=== PATIENT | female | born 1990 | race Caucasian/White ===

== ENCOUNTER 2022-12-14 17:09 | Emergency (ER) | payer OTHER ==
[2022-12-14 17:30] VITALS: TEMP 98.4
--- NOTE | 2022-12-14 19:11 | ED ---
Fall HPI - General Chief Complaint: Fall Stated Complaint: 17 weeks fell down 5 steps Time Seen by Provider: 12/14/22 18:25 Source: patient Mode of arrival: ambulatory - History of Present Illness Initial Comments: 32-year-old female presenting to the ED with a chief complaint of fall. Patient is A3. Patient reports that she was carrying groceries up the stairs when her left foot got caught on the stair causing her to fall backwards down half the stairway. Patient reports that she did not hit her head at this time. Does report that she fell onto the left side of her back and now notes left shoulder pain and left knee pain. Patient is currently 17 weeks and also notes that she is concerned about her baby due to fall. Patient does note some ab dominal pain after a fall however denies vaginal bleeding. No chest pain, shortness of breath, lightheadedness, dizziness prior to the fall. No other complaints. - Related Data Allergies Allergy/AdvReac Type Severity Reaction Status Date / Time amoxicillin Allergy Rash/Hives Verified 12/14/22 17:16 codeine Allergy Rash/Hives Verified 12/14/22 17:16 morphine Allergy Vomiting Verified 12/14/22 17:16 Review of Systems ROS Statement: Those systems with pertinent positive or pertinent negative responses have been documented in the HPI. ROS Other: All systems not noted in ROS Statement are negative. Past Medical History Past Medical History: Hypertension Additional Past Medical History / Comment(s): Pre eclampsia History of Any Multi-Drug Resistant Organisms: None Reported Past Surgical History: Section Past Psychological History: No Psychological Hx Reported Smoking Status: Never smoker Past Alcohol Use History: None Reported Past Drug Use History: None Reported General Exam Limitations: no limitations General appearance: alert, in no apparent distress Head exam: Present: atraumatic, normocephalic, other (No wiggins signs or raccoons eyes.) Eye exam: Present: normal appearance, PERRL, EOMI Respiratory exam: Present: normal lung sounds bilaterally Cardiovascular Exam: Present: regular rate, normal rhythm GI/Abdominal exam: Present: other (Gravid. No significant tenderness to palpation.) Neurological exam: Present: alert, oriented X3 Skin exam: Present: warm, dry Course Vital Signs 12/14/22 12/14/22 17:13 21:42 Temperature 98.4 F Pulse Rate 100 94 Respiratory 20 18 Rate Blood Pressure 159/106 131/94 O2 Sat by Pulse 97 98 Oximetry Medical Decision Making - Medical Decision Making Was pt. sent in by a medical professional or institution (, PA, BOTTOMER OPERATOR, urgent care, hospital, or group home...) When possible be specific @ -No Did you speak to anyone other than the patient for history (EMS, parent, family, police, friend...)? What history was obtained from this source @ -No Did you review nursing and triage notes (agree or disagree)? Why? @ -I reviewed and agree with nursing and triage notes Were old charts reviewed (outside hosp., previous admission, EMS record, old EKG, old radiological studies, urgent care reports/EKG's, group home records)? Report findings @ -No old charts were reviewed Differential Diagnosis (chest pain, altered mental status, abdominal pain women, abdominal pain men, vaginal bleeding, weakness, fever, dyspnea, syncope, headache, dizziness, GI bleed, back pain, seizure, CVA, palpatations, mental health, musculoskeletal)? @ -Differential Abdominal Pain Women: Appendicitis, Cholecystitis, diverticulosis, ischemic bowel, pancreatitis, hepatitis, UTI, gastroenteritis, AAA, incarcerated hernia, bowel obstruction, constipation, inflammatory bowel, hepatitis, peptic ulcer disease, splenic infarction, perforated viscus, vulvitis, ovarian torsion, PID, kidney stone, placenta abruption, this is not meant to be an all-inclusive list EKG interpreted by me (3pts min.). @ -As above X-rays interpreted by me (1pt min.). @ -None done CT interpreted by me (1pt min.). @ -None done U/S interpreted by me (1pt. min.). @ -None done What testing was considered but not performed or refused? (CT, X-rays, U/S, labs)? Why? @ -X-ray of the shoulder, hip, knee were considered however patient did have full active range of motion of bilateral upper and lower extremities and had no crepitus, or obvious bony deformity on exam. In context of x-ray was discussed as an option with the patient however patient notes that she would like to have x-rays performed at this time. What meds were considered but not given or refused? Why? @ -None Did you discuss the management of the patient with other professionals (professionals i.e. , PA, BOTTOMER OPERATOR, lab, RT, psych nurse, social sciences chair, fleece tier, teacher, risk control officer, bilingual patient support caseworker)? Give summary @ -No Was smoking cessation discussed for >3mins.? @ -No Was critical care preformed (if so, how long)? @ -No Were there social determinants of health that impacted care today? How? (Homelessness, low income, unemployed, alcoholism, drug addiction, trans portation, low edu. Level, literacy, decrease access to med. care, senior care, rehab)? @ -No Was there de-escalation of care discussed even if they declined (Discuss DNR or withdrawal of care, Hospice)? DNR status @ -No What co-morbidities impacted this encounter? (DM, HTN, Smoking, COPD, CAD, Cancer, CVA, ARF, Chemo, Hep., AIDS, mental health diagnosis, sleep apnea, morbid obesity)? @ - Was patient admitted / discharged? Hospital course, mention meds given and route, prescriptions, significant lab abnormalities, going to OR and other pertinent info. @ -Discharge 32-year-old female presenting to the ED with a chief complaint of fall. Patient states that she was going up the stairs carrying groceries when she actually stubbed her left foot on the stairs causing her to lose her balance and fall backwards. Patient denies head injury at this time. Patient states that she primarily landed on her buttocks and left shoulder and now notes pain of these regions. X-ray was offered however patient did decline. Transvaginal ultrasound did show single live intrauterine with no evidence of placental abruption. Patient Rh+. Patient discharged home in stable condition. Discussed return precautions patient verbalizes agreement. Undiagnosed new problem with uncertain prognosis? @ -No Drug Therapy requiring intensive monitoring for toxicity (Heparin, Nitro, Insulin, Cardizem)? @ -No Were any procedures done? @ -No Diagnosis/symptom? @ -s/p mechanical fall Acute, or Chronic, or Acute on Chronic? @ -Acute Uncomplicated (without systemic symptoms) or Complicated (systemic symptoms)? @ -Uncomplicated Side effects of treatment? @ -No Exacerbation, Progression, or Severe Exacerbation? @ -No Poses a threat to life or bodily function? How? (Chest pain, [place], [place], pneumonia, PE, COPD, DKA, ARF, appy, cholecystitis, CVA, Diverticulitis, Homicidal, Suicidal, threat to staff... and all critical care pts) @ -No - Lab Data Result diagrams: 12/14/22 20:03 12/14/22 20:03 Lab Results 12/14/22 12/14/22 12/14/22 Range/Units 20:03 20:03 20:03 WBC 11.3 H (3.8-10.6) k/uL RBC 4.11 (3.80-5.40) m/uL Hgb 12.5 (11.4-16.0) gm/dL Hct 34.7 (34.0-46.0) % MCV 84.4 (80.0-100.0) fL MCH 30.4 (25.0-35.0) pg MCHC 36.0 (31.0-37.0) g/dL RDW 13.6 (11.5-15.5) % Plt Count 208 (150-450) k/uL MPV 9.7 Neutrophils % 74 % Lymphocytes % 19 % Monocytes % 5 % Eosinophils % 2 % Basophils % 0 % Neutrophils # 8.3 H (1.3-7.7) k/uL Lymphocytes # 2.1 (1.0-4.8) k/uL Monocytes # 0.5 (0-1.0) k/uL Eosinophils # 0.2 (0-0.7) k/uL Basophils # 0.0 (0-0.2) k/uL Sodium 135 L (137-145) mmol/L Potassium 4.4 (3.5-5.1) mmol/L Chloride 109 H (98-107) mmol/L Carbon Dioxide 15 L (22-30) mmol/L Anion Gap 11 mmol/L BUN 8 (7-17) mg/dL Creatinine 0.43 L (0.52-1.04) mg/dL Est GFR (CKD-EPI)AfAm >90 (>60 ml/min/1.73 sqM) Est GFR (CKD-EPI)NonAf >90 (>60 ml/min/1.73 sqM) Glucose 89 (74-99) mg/dL Calcium 9.2 (8.4-10.2) mg/dL Magnesium 1.8 (1.6-2.3) mg/dL Total Bilirubin 0.5 (0.2-1.3) mg/dL AST 31 (14-36) U/L ALT 16 (4-34) U/L Alkaline Phosphatase 72 (38-126) U/L Total Protein 6.6 (6.3-8.2) g/dL Albumin 3.6 (3.5-5.0) g/dL Urine Color Yellow Urine Appearance Cloudy H (Clear) Urine pH 6.0 (5.0-8.0) Ur Specific [place] 1.024 (1.001-1.035) Urine Protein Trace H (Negative) Urine Glucose (UA) Negative (Negative) Urine Ketones 1+ H (Negative) Urine Blood Negative (Negative) Urine Nitrite Negative (Negative) Urine Bilirubin Negative (Negative) Urine Urobilinogen <2.0 (<2.0) mg/dL Ur Leukocyte Esterase Large H (Negative) Urine RBC 5 (0-5) /hpf Urine WBC 8 H (0-5) /hpf Ur Squamous Epith Cells 25 H (0-4) /hpf Urine Bacteria Rare H (None) /hpf Urine Mucus Many H (None) /hpf Blood Type Blood Type Recheck Bld Type Recheck Status 12/14/22 Range/Units 21:44 WBC (3.8-10.6) k/uL RBC (3.80-5.40) m/uL Hgb (11.4-16.0) gm/dL Hct (34.0-46.0) % MCV (80.0-100.0) fL MCH (25.0-35.0) pg MCHC (31.0-37.0) g/dL RDW (11.5-15.5) % Plt Count (150-450) k/uL MPV Neutrophils % % Lymphocytes % % Monocytes % % Eosinophils % % Basophils % % Neutrophils # (1.3-7.7) k/uL Lymphocytes # (1.0-4.8) k/uL Monocytes # (0-1.0) k/uL Eosinophils # (0-0.7) k/uL Basophils # (0-0.2) k/uL Sodium (137-145) mmol/L Potassium (3.5-5.1) mmol/L Chloride (98-107) mmol/L Carbon Dioxide (22-30) mmol/L Anion Gap mmol/L BUN (7-17) mg/dL Creatinine (0.52-1.04) mg/dL Est GFR (CKD-EPI)AfAm (>60 ml/min/1.73 sqM) Est GFR (CKD-EPI)NonAf (>60 ml/min/1.73 sqM) Glucose (74-99) mg/dL Calcium (8.4-10.2) mg/dL Magnesium (1.6-2.3) mg/dL Total Bilirubin (0.2-1.3) mg/dL AST (14-36) U/L ALT (4-34) U/L Alkaline Phosphatase (38-126) U/L Total Protein (6.3-8.2) g/dL Albumin (3.5-5.0) g/dL Urine Color Urine Appearance (Clear) Urine pH (5.0-8.0) Ur Specific [place] (1.001-1.035) Urine Protein (Negative) Urine Glucose (UA) (Negative) Urine Ketones (Negative) Urine Blood (Negative) Urine Nitrite (Negative) Urine Bilirubin (Negative) Urine Urobilinogen (<2.0) mg/dL Ur Leukocyte Esterase (Negative) Urine RBC (0-5) /hpf Urine WBC (0-5) /hpf Ur Squamous Epith Cells (0-4) /hpf Urine Bacteria (None) /hpf Urine Mucus (None) /hpf Blood Type O Positive Blood Type Recheck No Previous Record Bld Type Recheck Status [facility] ONLY Disposition Clinical Impression: Fall Disposition: HOME SELF-CARE Condition: Good Additional Instructions: Please return to the Emergency Department if symptoms worsen or any other concerns. Is patient prescribed a controlled substance at d/c from ED?: No Referrals: Lindsey Cedeño MD [Primary Care Provider] - 1-2 days Time of Disposition: 22:55
[2022-12-14 20:14] LABS: Basophils % (A) 0 %; Eosinophils # (A) 0.2 k/uL (0-0.7); Eosinophils % (A) 2 %; HCT 34.7 % (34.0-46.0); HGB 12.5 gm/dL (11.4-16.0); Lymphocytes # (A) 2.1 k/uL (1.0-4.8); Lymphocytes % (A) 19 %; MCH 30.4 pg (25.0-35.0); MCV 84.4 fL (80.0-100.0); Mean Platelet Volume 9.7; Monocytes # (A) 0.5 k/uL (0-1.0); Monocytes % (A) 5 %; Neutrophils # (A) 8.3 k/uL (1.3-7.7); Neutrophils % (A) 74 %; Platelet Count 208 k/uL (150-450); RBC 4.11 m/uL (3.80-5.40); RDW 13.6 % (11.5-15.5); WBC 11.3 k/uL (3.8-10.6)
[2022-12-14 20:34] LABS: Appearance,Urine Cloudy (Clear); Bacteria,Urine Rare /hpf; Bilirubin,Urine Negative (Negative); Blood,Urine Negative (Negative); Color,Urine Yellow; Glucose,Urine (UA) Negative (Negative); Ketones,Urine 1+ (Negative); Leukocyte Esterase,Urine Large (Negative); Mucus,Urine Many /hpf; Nitrite,Urine Negative (Negative); Protein,Urine Trace (Negative); RBC,Urine 5 /hpf (0-5); Specific Gravity,Urine 1.024 (1.001-1.035); Squamous Epithelial Cell,Urine 25 /hpf (0-4); Urobilinogen,Urine <2.0 mg/dL (<2.0); WBC,Urine 8 /hpf (0-5)
[2022-12-14 20:35] LABS: ALT 16 U/L (4-34); African American GFR (CKD) >90 (>60 ml/min/1.73 sqM); Anion Gap 11 mmol/L; Blood Urea Nitrogen 8 mg/dL (7-17); Calcium 9.2 mg/dL (8.4-10.2); Carbon Dioxide 15 mmol/L (22-30); Chloride 109 mmol/L (98-107); Glucose 89 mg/dL (74-99); Non-African American GFR(CKD) >90 (>60 ml/min/1.73 sqM); Sodium 135 mmol/L (137-145); Total Bilirubin 0.5 mg/dL (0.2-1.3)
[2022-12-14 20:41] LABS: AST 31 U/L (14-36); Albumin 3.6 g/dL (3.5-5.0); Alkaline Phosphatase 72 U/L (38-126); Magnesium 1.8 mg/dL (1.6-2.3); Potassium 4.4 mmol/L (3.5-5.1); Total Protein 6.6 g/dL (6.3-8.2)
--- NOTE | 2022-12-14 20:48 | US ---
EXAMINATION TYPE: US OB limited DATE OF EXAM: 12/14/2022 COMPARISON: NONE CLINICAL INDICATION: Female, 32 years old with history of 17 weeks s/p fall; pain near umbil icus after fall on patient's left side, no bleeding EXAM PERFORMED: BENJAMÍN GESTATIONAL AGE / DATING Physician Established: (17 weeks/0 days) EDC: 05/24/2023 No growth performed on today?s study per ordering physician SURVEY PLACENTA: Posterior - No signs of abruption PREVIA: Marginal PRESENTATION: Vertex LIE: Longitudinal HEART RATE: 176 bpm RHYTHM: Normal IMPRESSION: Single live intrauterine gestation. No evidence of placenta abruption.
[2022-12-14 21:50] VITALS: BP 131/94; PULSE 94; RESP 18
== END 2022-12-14 23:36 | disposition home or self-care (01) ==
LOC: EC 17:09
DX: O26.892 Other specified pregnancy related conditions, second trimester (principal); O10.912 Unspecified pre-existing hypertension complicating pregnancy, second trimester; M25.512 Pain in left shoulder; Z3A.17 17 weeks gestation of pregnancy; Z88.0 Allergy status to penicillin; Z88.5 Allergy status to narcotic agent; Z88.8 Allergy status to other drugs, medicaments and biological substances; W10.9XXA Fall (on) (from) unspecified stairs and steps, initial encounter
CPT/HCPCS: 36415; 76815; 80053; 81001; 83735; 85025; 86900; 86901; 99284

== ENCOUNTER → 2023-11-18 | Outpatient (CLI) | payer OTHER ==
--- NOTE | 2023-12-01 09:22 | CT ---
EXAMINATION TYPE: CT abdomen wo con DATE OF EXAM: 11/18/2023 COMPARISON: None INDICATION: Pain near belly button, bulge after eating, and irregular bowel movements. No priors DLP: 881 mGycm, Automated exposure control for dose reduction was used. CONTRAST: 0 mL of Isovue 300. Study performed with Oral Contrast TECHNIQUE: Axial images were obtained from above the diaphragm to the iliac crests in the axial plane at 5 mm thick sections. Reconstructed images are reviewed on the computer in the coronal plane. FINDINGS: Limited CT sections are obtained the lung bases. The lung bases are clear. CT ABDOMEN: There is an anterior abdominal wall hernia in the periumbilical region upper pelvis. Open ing is 3.1 cm and contains mesenteric fat. No loops of bowel are involved. The herniation measures ap proximately 8.6 x 2.1 cm. Liver: Normal Spleen: Normal Pancreas: Normal Adrenal glands: Left adrenal gland is mildly prominent 1.2 cm. Right adrenal gland is normal. Gallbladder: Decompressed. Gallstone is present. Kidneys: No masses are evident. No hydronephrosis is present. No cysts are present. There is a non obstructing posterior superior left renal calcification measuring 0.4 cm. Aorta: Normal Inferior vena cava: Normal. Loops of bowel within the abdomen and pelvis are normal. The study has limited oral contrast. The re are loops of bowel lacking oral contrast or incompletely distended limiting their evaluation. IMPRESSION: 1. Anterior mid pelvic wall hernia in the periumbilical region containing mesenteric fat without loo ps of bowel. 2. 0.4 cm nonobstructing left renal stone. 3. Mild prominence of the left adrenal gland [facility], , 12/01/2023 9:20 AM
== END | disposition home or self-care (01) ==
LOC: RADCTMAIN 17:05
PROVIDERS: ATTEND Internal Medicine Geriatric Medicine
DX: R19.07 Generalized intra-abdominal and pelvic swelling, mass and lump
CPT/HCPCS: 74150